=== PATIENT | female | born 1995 | race Two or more races ===

== ENCOUNTER 2024-12-09 13:20 | Emergency (ER) | payer MEDICAID, SELFPAY ==
[2024-12-09 13:28] VITALS: BP 128/85; PULSE 88; RESP 20; TEMP 36.9; O2SAT 96; BMI 31.4
--- NOTE | 2024-12-09 13:59 | XR_ITS ---
Examination: CT brain head without contrast. 2-D sagittal coronal reconstructions Date and time of exam:December 09, 2024, 1412 hours, comparison October 15, 2014 INDICATIONS: Onset generalized head pain today CTDI: vol (mGy):56.2 DLP: (mGycm):1135 Technique: Multiple CT axial sections of the brain have been obtained, 5 mm slice thickness. Contrast has not been administered. 2-D sagittal, coronal reconstructions have been obtained Low dose protocols were performed. One or more of the following dose reduction techniques were used; automated exposure control, adjustment of the mA and/or KV according to patient size, use of iterative reconstruction technique. Findings: No significant ventricular enlargement. Intra-axial or extra-axial hemorrhage density is not seen. No mass effect or midline shift Basal cisterns are not remarkable. Fourth ventricle is midline. Cranial vault intact. Small retention cysts in the maxillary antra Impression: Negative for acute hemorrhage, mass effect or midline shift
--- NOTE | 2024-12-09 14:01 | EDNOTE_ITS ---
ED Headache E/HPI General Chief Complaint: Headache Stated Complaint: HEADACHE Time Seen by Provider: 12/09/24 13:41 Arrival date/time: 12/09/24 13:20 RME / HPI RME / HPI Narrative: 29-year-old female patient was brought in by family for evaluation regarding headache. Has been having headache since earlier this morning, described as dull ache, severity moderate. Patient also complained of nausea but denies any vomiting. Denies any fever denies any head trauma or fall. Patient denies any focal neurologic deficit patient is ambulatory. Denies any neck pain also. No medications taken prior to visit. Related Data Home Medications ?Medication ?Instructions ?Recorded ?Confirmed pantoprazole 40 mg tablet,delayed 40 mg PO QDAY 10/01/22 release (Protonix) Previous Rx's ?Medication ?Instructions ?Recorded rizatriptan 10 mg tablet (Maxalt) 10 mg PO Q2H PRN cleopatra valente headache 12/09/24 #20 tabs Allergies Allergy/AdvReac Type Severity Reaction Status Date / Time No Known Allergies Allergy Verified 10/02/22 10:03 Review of Systems Review of Systems Narrative Review of Systems: Review of system reviewed and within normal limits except mentioned in HPI ED Exam Narrative Physical exam: VITAL SIGNS: Reviewed. GENERAL APPEARANCE: Alert and interactive, follows commands, no acute distress, HEAD AND FACE: Non-traumatic. ENT: PERRL, pink conjunctivitis, eyelid no trauma, Mucous membrane moist. NECK: Supple, nontender, no nuchal rigidity. CHEST: No tenderness, no crepitus, no paradoxical movement, no retractions. LUNGS: Clear, well ventilated, symmetric, no rales, no wheezing, no ronchi, no stridor, good breath sounds bilaterally. HEART: Regular rate, regular rhythm, no murmur, no gallops. ABDOMEN: Soft, positive bowel sounds, nondistended, no guarding, nontender, no rebound, no masses, RECTAL: Deferred. GENITAL: Deferred. NEUROLOGICAL: Gross motor function intact sensory function intact, Appropriate for age. MUSCULOSKELETAL: low back nontender, full range of motion. EXTREMITIES: Nontender, full range of motion. SKIN: Color pink, dry, no rash, no lacerations, no abrasions, no contusions. LYMPHATICS: Deferred. Course Quality Measures none Orders Category Date Time Status CT head/brain wo con Stat Exams 12/09/24 13:59 Completed Acetaminophen Tab [Tylenol ES Tab] Med 12/09/24 13:59 Discontinued 1,000 mg PO X1 ONE DiphenhydrAMINE [Benadryl] Med 12/09/24 13:59 Discontinued 50 mg PO X1 ONE Ketorolac Inj [Toradol Inj] Med 12/09/24 14:54 Discontinued 30 mg IM X1 ONE Metoclopramide [Reglan] Med 12/09/24 13:59 Discontinued 10 mg PO X1 ONE Vital Signs Vital signs: Vital Signs Temperature 98.5 F 12/09/24 13:28 Pulse Rate 88 12/09/24 13:28 Respiratory Rate 20 12/09/24 13:28 Blood Pressure 128/85 H 12/09/24 13:28 Pulse Oximetry (%) 96 12/09/24 13:28 Oxygen Delivery Method Room Air 12/09/24 13:28 Headache MDM Narrative MDM Narrative:: 29-year-old female patient was brought in by family for evaluation regarding headache. Has been having headache since earlier this morning, described as dull ache, severity moderate. Patient also complained of nausea but denies any vomiting. Denies any fever denies any head trauma or fall. Patient denies any focal neurologic deficit patient is ambulatory. Denies any neck pain also. No medications taken prior to visit. CT scan of the head came back unremarkable. Patient received Tylenol Benadryl Reglan with significant proving of symptoms added Toradol with complete resolution of symptoms prior to discharge patient is not having any headache Patient appears nontoxic and hemodynamically stable .Decision to discharge the patient. The patient/family was given an opportunity to ask questions and understood their discharge instructions. Discharge instructions specifically included follow up provider and time frame, current and/or new medications and possible side effects, indications for sooner follow up or return to the em ergency department, and the expected course of current diagnosis. Patient reports feeling better as well and giving evidence of significant clinical improvement, I believe patient is now a candidate for discharge. Patient data External records reviewed:: None Clinical information provided by:: patient Social determinants that could affect healthcare access:: none Patient has the following chronic illnesses:: None How is presenting disease/condition affected by chronic disease/condition?: no chronic disease Evaluation data The following diagnostics were reviewed and interpreted by me:: radiology exam(s) Lab and/or radiology exams considered but not ordered:: None Interpretation Summary: See results [facility] Medications / Prescriptions Medications or Prescriptions considered but not ordered:: None Medication administrations:: Medication Administration History Discontinued Medications Acetaminophen (Acetaminophen 500 Mg Tablet) 1,000 mg PO X1 ONE Stop: 12/09/24 14:00 Last Admin: 12/09/24 14:07 Dose: 1,000 mg Documented By: JORGE A Diphenhydramine HCl (Diphenhydramine 25 Mg Capsule) 50 mg PO X1 ONE Stop: 12/09/24 14:00 Last Admin: 12/09/24 14:08 Dose: 50 mg Documented By: JORGE A Ketorolac Tromethamine (Ketorolac Inj 30 Mg/Ml Vial) 30 mg IM X1 ONE Stop: 12/09/24 14:55 Last Admin: 12/09/24 15:04 Dose: 30 mg Documented By: JORGE A Metoclopramide HCl (Metoclopramide 5 Mg Tablet) 10 mg PO X1 ONE Stop: 12/09/24 14:00 Last Admin: 12/09/24 14:07 Dose: 10 mg Documented By: JORGE A See [facility] Consultations Consultation(s) initiated? (list below): No Diagnosis Differential diagnosis headache: migraine, tension headache and headache Most likely diagnosis given after review of the tests above:: Headache Admission Indicated Admission indicated?: not indicated Explain why admission is indicated or not indicated:: None Admission Request Was there a request for admission?: No Disposition Plan Disposition Plan: Discharge Discharge Attestation Discharge Attestation: The patient was given an opportunity to ask questions and understood the discharge instructions. Discharge instructions specifically effects, indications for sooner follow up or return to the emergency department, and the expected course of current diagnosis. Patient condition: Stable Discharge Plan Plan Patient Disposition: HOME (Self Care) Discharge Disposition comment: Stable Prescriptions/Referrals Prescriptions/Med Rec: New rizatriptan [Maxalt] 10 mg tablet 10 mg PO Q2H PRN (Reason: migraine headache) Qty: 20 0RF Rx Instructions: do not exceed 3 doses per 24 hrs No Action pantoprazole [Protonix] 40 mg Tablet,Delayed Release (Dr/Ec) 40 mg PO QDAY Referrals: Nura William MD [Primary Care Provider, Family Practice] - In 1 week Problem List Clinical Impression: Headache Patient/Caregiver Discharge Instructions Discharge Activity: activity as tolerated Education Materials: Self-Care for Headaches Additional Instructions: Thank you for the opportunity for serving you today. You are stable for discharged . You are advised to: Follow-up with your PCP in 1 to 2 days Return to ED for worsening of symptoms Increase oral fluids Take medication as prescribed Print Language: Frisian Stand Alone Forms: Jaci Award Info., Patient Portal Info Letter PA/GEE Supervising Physician ALEXIS/GEE Supervising Physician: MD Deshaun
[2024-12-09] MEDS: ACETAMINOPHEN 500 MG TABLET 1000 MG PO (14:07)
[2024-12-09] MEDS: METOCLOPRAMIDE 5 MG TABLET 10 MG PO (14:07)
[2024-12-09] MEDS: KETOROLAC INJ 30 MG/ML VIAL IM (15:04)
[2024-12-09 15:55] VITALS: BP 117/84; PULSE 84; RESP 16; TEMP 37.1; O2SAT 98
== END 2024-12-09 16:34 | disposition home or self-care (01) ==
PROVIDERS: Emergency Provider Family Medicine; PCP Family Medicine
DX: R51.9 Headache, unspecified (principal)
CPT/HCPCS: 70450; 96372; 99284; J1885; A9270